=== PATIENT | female | born 1940 | race Caucasian/White ===

== ENCOUNTER 2020-06-15 23:27 | Observation (INO) | payer MEDICARE, OTHER, SELFPAY ==
[2020-06-15 23:28] VITALS: BP 163/75; PULSE 83; RESP 15; TEMP 36.5; O2SAT 98; BMI 20.6
--- NOTE | 2020-06-15 23:41 | ED.DCSUM_ITS ---
History of Present Illness Chief Complaint: Dizziness Narrative: Patient presenting for evaluation secondary to vertigo. Patient has an underlying history of hypertension hyperlipidemia. Patient does state that around 20 years ago she had an episode similar to this that was peripheral vertigo. Patient states that tonight she had a sudden onset of dizziness. This is a very severe vertiginous type feeling that is associated with worsening with opening her eyes as well as position change and has been associated with forceful nausea and vomiting. She denies any headaches. She denies any numbness or weakness. She denies any speech difficulty. No recent head injuries, neck manipulations or injuries, motor vehicle crashes, or dental procedures. No tinnitus associated with this. Review of systems otherwise negative. Past Medical History - Allergies and Home Meds Allergies/Adverse Reactions: Allergies codeine Allergy (Verified 06/15/20 23:32) Anaphylaxis Primary Care Physician: Miriam Ramirez,Out of [NON-STAFF] - Prior records reviewed: Yes Past Medical History: - - Hypertension, hyperlipidemia Smoking Status: Former smoker Alcohol: None Drugs: None Review of Systems All systems negative except as indicated General: Denies: Chills, Fever, Sweats Eyes: Denies: Visual changes - bilaterally, Diplopia ENT: Denies: Rhinorrhea, Sore throat Cardiovascular: Denies: Chest pain, Palpitations Respiratory: Denies: Dyspnea, Cough, Dyspnea on exertion Gastrointestinal: Reports: Nausea, Vomiting Genitourinary: Denies: Dysuria, Hematuria, Frequency Musculoskeletal: Denies: Back pain, Extremity Pain Skin: Denies: Rash, Wounds Neurological: Reports: - - Vertigo Physical Exam Vital Signs/Narrative: Vital Signs Temp Pulse Resp BP Pulse Ox 06/15/20 23:28 97.7 F L 83 15 163/75 H 98 Inital Vital Signs reviewed: Yes General: - - Thin female actively retching, otherwise not in physiologic dis tress Head: Normocephalic, Atraumatic Eyes: Perrl, EOMI, - - No resting nystagmus ENT: Moist mucous membranes Neck: Supple, Nontender Cardiovascular: Regular rate, Regular rhythm, No murmurs, - - Plus radial pulses bilaterally symmetric Respiratory: No distress, CTA bilaterally, Chest nontender Abdomen: Soft, Nontender Neurological: Alert, Oriented x3, - - Patient is moving upper and lower extremi ties equally, is unable to participate in the physical exam secondary to her level of vertigo but does not appear outwardly ataxic or altered. Psychological: Normal affect Diagnostic/Tx/Re-eval Clinical Impression(s) from Imaging Studies Brain CT 06/16/20 23:33 IMPRESSION: No acute intracranial abnormality. Chronic changes as above. ASPECT 10. Individualized dose optimization techniques were used for this CT. at 0039 Reported and signed by: Keegan Stroud MD Electronically Signed: Keegan Stroud MD at 0:38 EDT Tel , Service support , - Medical Decision Making Patient presenting for evaluation secondary to vertigo. Patient on initial presentation was actively retching and severely vertiginous keeping her eyes closed. She was unable to participate in exam. She was medicated with Zofran, Benadryl, and Ativan and did have some improvement of her resting symptoms. I was able to examine her and to determine that she was not ataxic but was unable to perform a [place]-Hallpike maneuver on the patient secondary to severity of symptoms. CT imaging of the brain was found to be unremarkable. After medication administration and some improvement with her resting symptoms the patient was attempted to be ambulated but was unable to ambulate secondary to the severity of her dizziness. I believe the patient requires admission. Patient was discussed with the hospitalist. ED Disposition - Plan for ED Patient: Disposition: Acute Care Hospital [facility] Diagnosis: Peripheral vertigo, Ambulatory dysfunction
[2020-06-15] MEDS: Ondansetron 4 MG/2 ML Vial IV (23:59)
[2020-06-16] MEDS: DiphenhydrAMINE 50 MG/ML Syringe 25 MG IV
[2020-06-16] MEDS: LORazepam 2 MG/ML Syringe 1 MG IV (00:01)
[2020-06-16] MEDS: 0.9% Normal Saline 1,000 ML 999 ML IV (00:03)
[2020-06-16 01:28] VITALS: BP 113/50; PULSE 64; RESP 17; O2SAT 97
[2020-06-16 01:33] VITALS: BP 113/50; PULSE 64; RESP 17; TEMP 36.6; O2SAT 97
--- NOTE | 2020-06-16 01:37 | PCM.HP.STD ---
Problem List (1) Peripheral vertigo Status: Acute (2) Ambulatory dysfunction Status: Chronic History of Present Illness Date of Admission: 06/16/20 Chief Complaint: vertigo The patient is a 79 year old F with a significant history of hypertension; hyperlipidemia; PAD status post stent: Psoriatic arthritis on methotrexate; TIA; and macular disease who presented to the emergency department with a Vertigo that started few hours before presentation. Associated with her symptoms is nausea and vomiting. Past Medical History Past Medical History (Chronic Problems): Chronic Problems Ambulatory dysfunction (Chronic) Allergies codeine Allergy (Verified 06/15/20 23:32) Anaphylaxis Home Medications: Ambulatory Orders Medication Instructions Recorded Amlodipine [Norvasc] 10 mg PO DAILY 10/01/15 Aspirin 81 mg PO DAILY 10/01/15 Atorvastatin Calcium [Lipitor] 60 mg PO QHS 10/01/15 Calcium Carbonate/Vitamin D3 1 each PO DAILY 10/01/15 [Calcium 500+D Tablet Chew] Clopidogrel Bisulfate [Plavix] 75 mg PO DAILY 10/01/15 Folic Acid 1 mg PO DAILY@0800 10/01/15 Methotrexate 2.5 mg PO QWEEK 10/01/15 Levothyroxine [Synthroid] 50 mcg PO DAILY 06/15/20 Losartan Potassium 25 mg PO DAILY 06/15/20 Bupropion HCl ER 150 mg PO DAILY 06/16/20 Surgical History: - - 2 C-sections; repair of left fractured patella; surgery for macular hole in the eye; PAD stents Smoking Status: Former smoker Alcohol: None Drugs: None Review of Systems Constitutional: Denies: Chills, Fever, Weight Change HEENT: Denies: Head Aches, Sinus Congestion, Sinus Drainage Cardiovascular: Denies: Chest Pain, Palpitations Respiratory: Denies: Cough, Shortness of breath at rest, Sputum production Gastrointestinal: Reports: Nausea, Vomiting. Denies: Abdominal Pain Genitourinary: Denies: Dysuria Musculoskeletal: Denies: Joint Pain, Joint Tenderness Skin: Denies: Rash, Wounds Neurological: Denies: Numbness, Tingling, Focal weakness Psychiatric: Denies: Anxiety, Depression, Homicidal Ideations, Suicidal Ideations Hematologic/ Lymphatic: Denies: Easy Bruising, Easy Bleeding VTE Information - Inpt Only VTE Present on Admission: No VTE Mechan Device Prophylaxis: SCD's VTE Pharm Prophylaxis ordered?: No Patient Problems: Active and Suspected Problems Peripheral vertigo (Acute) - Physical Exam Vitals/I&O's: Vital Signs Temp Pulse Resp BP Pulse Ox 98 F 64 17 113/50 L 97 06/16/20 01:33 06/16/20 01:33 06/16/20 01:33 06/16/20 01:33 06/16/20 01:33 Oxygen Delivery Method Room Air Weight: 58 kg Body Mass Index (BMI) 20.6 General: Alert, Oriented x3, Cooperative HEENT: Atraumatic, PERRLA, EOMI, Normocephalic Neck: Supple, No JVD, Negative Carotid Bruits Lungs: Clear to auscultation, Normal air movement Cardiovascular: Regular rate, No murmurs Abdomen: Bowel Sounds Present, Soft, Non Tender Extremities: No edema, Capillary Refill Less than 3 Seconds Skin: No rashes, No breakdown Musculoskeletal: No Tenderness to Palpation of Joints or Extremities Neurological: Cranial nerves II-XII grossly intact, - - [place]-Hallpike maneuver to the left produces vertigo without any nystagmus. [place]-Hallpike maneuver to the right with no vertigo. Psych/Mental Status: Normal Affect, Appropriate Assessment/Plan All Active Problems Peripheral vertigo (Acute) The patient is a 79 year old F with a significant history of hypertension; hyperlipidemia; psoriatic arthritis on methotrexate; TIA; and macular disease who presents to the emergency department with a Vertigo that started few hours before presentation. Vertigo Brain CT showed no acute intracranial abnormality Order MRI Schedule meclizine 3 times daily Valium 5 mg PO Q8H PRN Vestibular rehab to be started inpatient; and possibly continuing outpatient if a central cause of vertigo is ruled out. History of TIA/macular disease PAD status post stent Aspirin and Plavix continued Hypertension Blood pressure appears stable in regard to her age. Losartan continued. Trend blood pressure and adjust blood pressure medications. DVT prophylaxis SCD ordered OBSV E&M: 91894 Initial observation care L2
[2020-06-16 02:22] VITALS: BP 121/67; PULSE 66; RESP 16; TEMP 36.4; O2SAT 96
[2020-06-16 02:29] VITALS: BMI 24.5; BMI 24.6
[2020-06-16] MEDS: Meclizine 12.5 MG Tablet PO ×2 (04:36→14:09)
[2020-06-16] MEDS: Levothyroxine 50 MCG Tablet PO (05:04)
--- NOTE | 2020-06-16 05:55 | MRI_ITS ---
STUDY: MRI BRAIN WITHOUT CONTRAST REASON FOR EXAM: Female, 79 years old. Vertigo WITH NAUSEA AND VOMITING X 1 DAY TECHNIQUE: Standardized multiplanar fat and water weighted pulse sequences were obtained. COMPARISON: CT head without contrast 06/16/2020. FINDINGS: No diffusion restriction to suspect acute or subacute ischemic infarct. Normal size of the ventricles and extra-axial spaces for the patient''s age. Multiple T2 FLAIR hyperintensity foci in the white matter of both cerebral hemispheres are chronic white matter ischemic changes. No midline shift and no mass effects. Normal bilateral basal ganglia. Normal thalami. There is no extra-axial fluid accumulation. Normal flow voids within the major intracranial circulation suggesting patency by spin echo criteria. Normal sella turcica, pituitary gland, infundibular stalk, optic chiasm and hypothalamus. Normal tectal plate and pineal gland. Normal midbrain, south and medulla. Normal cerebellum. Normal basal cisterns. Normal bilateral temporal bones. Normal bilateral internal auditory canals. No demonstrated orbital abnormality, within the constraints of a routine brain study. Normal visualized paranasal sinuses. Normal calvarium and skull base. Normal visualized soft tissue structures. Normal visualized upper cervical spine. MRI/Brain without Contrast IMPRESSION: 1. No MRI evidence of acute or subacute ischemic infarct or acute intracranial abnormality. 2. Chronic white matter ischemic changes in both cerebral hemispheres. Electronically Signed: Dejuan Hewitt MD at 10:36 EDT , Service support ,
[2020-06-16 06:08] LABS: Absolute Lymphocyte Count 1.08 X10^3/uL (0.83-4.51); Absolute Neutrophil Count 6.7 X10^3/uL (2.0-7.7); Basophil# 0.04 X10^3/uL; Basophil% 0.5 % (0-1); Eosinophil# 0.01 X10^3/uL; Eosinophils% 0.1 % (0-5); Hemoglobin 12.1 g/dL (12.0-15.0); Lymphocyte # 1.08 X10^3/ul (4.0); Lymphocyte % 12.9 % (19-41); Mean Corp Hgb Conc 32.7 g/dL (32-36); Mean Corpuscular Hgb 32.1 pg (27.0-32.0); Mean Corpuscular Volume 98.1 fL (81-99); Mean Platelet Vol. 8.6 fl (6.2-12.0); Monocyte# 0.52 X10^3/uL; Monocyte% 6.2 % (0-10); NRBC Flagged by Analyzer 0 % (0-5); Neutrophil % 79.8 % (47-70); Platelet Count 456 K/mm3 (150-450); RBC Distribution Width CV 12.1 % (11.6-14.6); RBC Distribution Width SD 44.1 fl (35.1-43.9); Red Blood Count 3.77 M/mm3 (4.2-5.4); White Blood Count 8.4 K/mm3 (4.4-11.0)
[2020-06-16 06:32] LABS: Anion Gap 7 (5-15); BUN 18 mg/dL (7-18); BUN/Creat Ratio 26.7 RATIO (10-20); Calcium,Total 8.1 mg/dL (8.5-10.1); Chloride 106 mmol/L (98-107); Creatinine, Serum 0.68 mg/dL (0.55-1.02); EST Glomerular Filtration Rate 90 mL/min (>60); Est Glom Filt Rate - Afr Amer 108 mL/min (>60); Glucose 102 mg/dL (74-106); Potassium 3.5 mmol/L (3.5-5.1); Sodium Level 137 mmol/L (136-145)
[2020-06-16 10:02] VITALS: BP 136/65; PULSE 76; RESP 16; TEMP 36.3; O2SAT 99
[2020-06-16] MEDS: Aspirin 81 MG TAB.CHEW PO (10:09)
[2020-06-16] MEDS: amLODIPine 10 MG Tablet PO (10:09)
[2020-06-16] MEDS: Calcium Carb/Vitamin D 1 TABLET Tablet PO (10:09)
[2020-06-16] MEDS: Folic Acid 1 MG Tablet PO (10:10)
[2020-06-16] MEDS: Losartan Potassium 25 MG Tablet PO (10:10)
[2020-06-16] MEDS: Clopidogrel Bisulfate 75 MG Tablet PO (10:10)
[2020-06-16] MEDS: diazePAM 5 MG Tablet PO (12:43)
--- NOTE | 2020-06-16 15:07 | CASEMGMT ---
Therapy recommended a wheeled walker for patient. MISTY spoke with patient and she was in [place] with [place] [facility]ISTY told her they will deliver it right to her room before she leaves. MISTY faxed prescription, face sheet, and [place] cards [place] [facility] also [place] [facility] and spoke with Letha regarding fax. Jessica Rush MSW GABRIELE
--- NOTE | 2020-06-16 15:22 | CASEMGMT ---
Patient was also interested in Vestibular therapy. SW obtained a prescription and faxed it to [facility]. SW also gave the prescription to patient. Plan[place] [facility] [place] therapy. Jessica SUAZO
--- NOTE | 2020-06-16 15:46 | DCINST_ITS ---
- Discharge Diagnoses Current Active Problems: Current Active and Chronic Problems Peripheral vertigo (Acute) Ambulatory dysfunction (Chronic) You will use the following diet at home:: No restrictions Your food should be the consistency of: Regular Your liquids should be the consistency of: Regular/Thin Discharge Activity: Return to Normal Activity, Use Walker - if needed Additional Instructions: Get vestibular PT as prescribed Allergies/Adverse Reactions: Allergies codeine Allergy (Verified 06/16/20 02:50) Anaphylaxis Medications to take at Discharge Amlodipine [Norvasc] 10 mg PO DAILY 10/01/15 Aspirin 81 mg PO DAILY 10/01/15 Atorvastatin Calcium [Lipitor] 60 mg PO QHS 10/01/15 Calcium Carbonate/Vitamin D3 [Calcium 500+D Tablet Chew] 1 each PO DAILY 10/01/15 Clopidogrel Bisulfate [Plavix] 75 mg PO DAILY 10/01/15 Folic Acid 1 mg PO DAILY@0800 10/01/15 Methotrexate 2.5 mg PO QWEEK 10/01/15 Levothyroxine [Synthroid] 50 mcg PO DAILY 06/15/20 Losartan Potassium 25 mg PO DAILY 06/15/20 Bupropion HCl ER 150 mg PO DAILY 06/16/20 Diazepam [Valium] 4 mg PO TID #30 tablet 06/16/20 The following prescriptions were given: Diazepam [Valium] 4 mg PO TID #30 tablet Transmission Status: Sent to [facility] Primary Care Physician: BALBINA LONG [Other] Please follow up with your Primary Care Physician in: in 2 weeks Test Results: Test results from this visit will be discussed in further detail at your follow- up appointment, if applicable.
--- NOTE | 2020-06-16 23:33 | CT_ITS ---
HISTORY: vertigo Technique:CT Head or Brain W/O Contrast Injection. Sagittal and coronal 2-D reformats Number of Images including paperwork:232 Comparison: None available. Findings: Periventricular deep and subcortical white matter disease is present. Paranasal sinuses are clear. The brain is atrophic. Calcific ASCVD involves intracranial arteries. No acute intracranial edema or hemorrhage. No acute abnormality of orbits. Middle ear cavities and mastoid air cells are well aerated. Skull is normal. CT/Brain/Head without Contrast IMPRESSION: No acute intracranial abnormality. Chronic changes as above. ASPECT 10. Individualized dose optimization techniques were used for this CT. at 0039 Reported and signed by: Keegan Stroud MD Electronically Signed: Keegan Stroud MD at 0:38 EDT Tel , Service support ,
--- NOTE | 2020-06-26 11:17 | PCM.DC.SUM ---
Discharge Date and Diagnosis - Problem List Patient Problems: Active and Suspected Problems Peripheral vertigo (Acute) Date of Admission: 06/16/20 Date of Discharge: 06/16/20 - Primary Discharge Diagnosis Acute Problems: Active Problems #1 acute benign vertigo #2 cerebrovascular disease #3 essential hypertension - Secondary Discharge Diagnosis Chronic Problems: Chronic Problems Ambulatory dysfunction (Chronic) Hospital Course and Treatment Operations: None Procedures: None Summary of Care Provided: The patient is a 79 year old F was seen in the emergency room at [facility] with chief complaint of dizziness. This was of sudden onset, she denied any speech difficulty, weakness, or paresthesias. Work-up in the emergency room included a brain CT which showed no intracranial abnormality, all labs are unremarkable. Patient remained vertiginous in the emergency room despite administration of medications, she was placed in observation status on PCU and underwent an MRI of the brain which showed no evidence of an acute event. Patient symptoms improved during her hospitalization. On examination she appeared in good health and spirits, she does not appear to be in any distress. Vital signs as documented. Skin warm and dry and without overt rashes. Neck without JVD, thyroid appears normal, trachea is midline, neck is supple. Lungs clear, normal air movement was noted. Heart exam notable for regular rhythm, normal sounds and absence of murmurs, rubs or gallops. Abdomen unremarkable and without evidence of organomegaly, masses, or abdominal aortic enlargement, bowel sounds are present in all 4 quadrants, no abdominal tenderness was noted. Extremities nonedematous, no cyanosis was noted, no clubbing was noted. Neuro: Cranial nerves II through XII are grossly intact, no focal motor deficits were noted, sensation to light touch and pinprick is intact, motor exam 5/5 throughout. Psych: Patient is alert and oriented x3, she does not appear anxious or depressed, she does not appear agitated. On 06/16/2020, patient appeared to be in stable condition for discharge home Patient Problems: Active and Suspected Problems Peripheral vertigo (Acute) - Physical Exam Vitals/I&O's: Vital Signs Temp Pulse Resp BP Pulse Ox 97.4 F L 76 16 136/65 H 99 06/16/20 10:02 06/16/20 10:02 06/16/20 10:02 06/16/20 10:02 06/16/20 10:02 Oxygen Delivery Method Room Air Weight: 55.2 kg Body Mass Index (BMI) 24.5 Discharge Activity: Return to Normal Activity, Use Walker - if needed Home Medications: Medications to take at Discharge Amlodipine [Norvasc] 10 mg PO DAILY 10/01/15 Aspirin 81 mg PO DAILY 10/01/15 Atorvastatin Calcium [Lipitor] 60 mg PO QHS 10/01/15 Calcium Carbonate/Vitamin D3 [Calcium 500+D Tablet Chew] 1 each PO DAILY 10/01/15 Clopidogrel Bisulfate [Plavix] 75 mg PO DAILY 10/01/15 Folic Acid 1 mg PO DAILY@0800 10/01/15 Methotrexate 2.5 mg PO QWEEK 10/01/15 Levothyroxine [Synthroid] 50 mcg PO DAILY 06/15/20 Losartan Potassium 25 mg PO DAILY 06/15/20 Bupropion HCl ER 150 mg PO DAILY 06/16/20 Diazepam [Valium] 4 mg PO TID #30 tablet 06/16/20 Following Prescriptions Were Given to Patient: Diazepam [Valium] 4 mg PO TID #30 tablet Transmission Status: Received by [facility] Primary Care Physician: BALBINA LONG [Other] Please follow up with your Primary Care Physician in: in 2 weeks Disposition: Home Minutes spent on discharge:: 30 Patient Condition:: Stable Medical Necessity - Tobacco Use Smoking Status: Former smoker Meaningful Use Info Meaningful Use Diagnoses (Choose all that apply): None applicable OBSV E&M: 58956 Observation care discharge
== END 2020-06-16 15:47 | disposition home or self-care (01) ==
LOC: ED 06-16 01:05 → PCU 06-16 01:45
PROVIDERS: Admitting Provider Hospitalist; Emergency Provider Emergency Medicine; Visit Provider Internal Medicine
DX: H81.399 Other peripheral vertigo, unspecified ear (principal); R26.9 Unspecified abnormalities of gait and mobility; I10 Essential (primary) hypertension; E78.5 Hyperlipidemia, unspecified; I73.9 Peripheral vascular disease, unspecified; L40.50 Arthropathic psoriasis, unspecified; Z87.891 Personal history of nicotine dependence; Z79.899 Other long term (current) drug therapy; Z79.02 Long term (current) use of antithrombotics/antiplatelets; Z79.82 Long term (current) use of aspirin; Z86.73 Personal history of transient ischemic attack (TIA), and cerebral infarction without residual deficits
CPT/HCPCS: 70450; 70551; 80048; 85025; 96361; 96374; 96375; 97162; 97166; 99218; 99285; J7030; A4216; G0378; J2405